=== PATIENT | male | born 1990 | race Caucasian/White ===

== ENCOUNTER 2017-04-28 01:29 | Emergency (ER) | payer BC ==
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
[2017-04-28 01:52] VITALS: TEMP 97.9
[2017-04-28 01:55] VITALS: BP 134/82; PULSE 76; RESP 18; O2SAT 95
== END 2017-04-28 02:03 | disposition home or self-care (01) ==
PROC: 0HQFXZZ Repair Right Hand Skin, External Approach (ICD-10-PCS; principal; 2017-04-28)
DX: S61.411A Laceration without foreign body of right hand, initial encounter (principal); W22.8XXA Striking against or struck by other objects, initial encounter